=== PATIENT | male | born 1940 | race Caucasian/White ===

== ENCOUNTER 2023-10-05 08:05 | Outpatient (RCR) | payer MEDICARE, OTHER, SELFPAY | END 2023-10-05 17:00 | disposition home or self-care (01) | LOC: HO.WCC 08:05 | PROVIDERS: PCP Family Medicine; Visit Provider Surgery | DX: Z09 Encounter for follow-up examination after completed treatment for conditions other than malignant neoplasm (principal); I87.302 Chronic venous hypertension (idiopathic) without complications of left lower extremity; Z87.891 Personal history of nicotine dependence | CPT/HCPCS: 99213 ==